=== PATIENT | female | born 1990 | race Caucasian/White ===

== ENCOUNTER 2021-01-11 19:25 | Emergency (ER) | payer SELFPAY ==
[~2021-01-11] VITALS: Ht 152.4 cm; Wt 78.0 kg
[2021-01-11 19:30] VITALS: BP 116/84
[2021-01-11] MEDS ORDERED: DIPHENHYDRAMINE 50MG CAPSULE PO ONE (20:15)
[2021-01-11] MEDS ORDERED: DEXAMETHASONE 10 MG/ML VIAL IM ONE (20:15)
[2021-01-11] MEDS ORDERED: FAMOTIDINE 20MG TABLET PO ONE (20:15)
[2021-01-11] MEDS ORDERED: DIPH25TA26 MT (21:17)
[2021-01-11] MEDS ORDERED: EPIN0.3P3 IM (21:18)
== END 2021-01-11 21:29 | disposition home or self-care (01) ==
LOC: ER 19:25
DX: T78.49XA Other allergy, initial encounter (principal); X58.XXXA Exposure to other specified factors, initial encounter; Z79.899 Other long term (current) drug therapy
CPT/HCPCS: 96372; 99283; J1100; Q0163